=== PATIENT | female | born 1970 | race Caucasian/White ===

== ENCOUNTER 2020-06-05 08:48 | Day surgery (SDC) | payer BC ==
[~2020-06-05] VITALS: Ht 172.7 cm; Wt 77.8 kg
[~2020-06-05 08:48] MED LIST: LORA.5 PO; PRAZ1 PO; ZOLOFT25 MG PO
== END 2020-06-05 10:30 | disposition home or self-care (01) ==
LOC: ORSCSDS 08:48
PROVIDERS: Orthopaedic Surgery
PROC: 01N54ZZ Release Median Nerve, Percutaneous Endoscopic Approach (ICD-10-PCS; principal; 2020-06-05 10:00)
DX: G56.01 Carpal tunnel syndrome, right upper limb (principal); F41.8 Other specified anxiety disorders; F17.210 Nicotine dependence, cigarettes, uncomplicated; Z79.899 Other long term (current) drug therapy
CPT/HCPCS: J2250; J3010; J7120

== ENCOUNTER 2023-02-23 14:30 | Emergency (ER) | payer OTHER ==
[~2023-02-23] VITALS: Ht 172.7 cm; Wt 93.4 kg
[2023-02-23 14:53] VITALS: BP 141/96
[2023-02-23] MEDS ORDERED: ENOX40I SC (15:32)
[2023-02-23] MEDS ORDERED: ZOLOFT10013 PO (15:33)
== END 2023-02-23 17:12 | disposition home or self-care (01) ==
LOC: ER 14:30
DX: G89.18 Other acute postprocedural pain (principal); M79.651 Pain in right thigh; R10.31 Right lower quadrant pain; Z79.899 Other long term (current) drug therapy; F17.210 Nicotine dependence, cigarettes, uncomplicated
CPT/HCPCS: 93971; 99283-25

== ENCOUNTER 2023-05-16 23:28 | Emergency (ER) | payer OTHER ==
[~2023-05-16] VITALS: Ht 172.7 cm; Wt 92.1 kg
[~2023-05-16 23:28] MED LIST changes: +ENOX40I SC; +ZOLOFT10013 PO
[2023-05-16 23:58] VITALS: BP 110/72
[2023-05-17] MEDS ORDERED: METO5A PO (00:01)
[2023-05-17] MEDS ORDERED: OMEP20ER PO (00:01)
== END 2023-05-17 01:55 | disposition home or self-care (01) ==
LOC: ER 23:28
DX: S91.312A Laceration without foreign body, left foot, initial encounter (principal); F17.210 Nicotine dependence, cigarettes, uncomplicated; W26.0XXA Contact with knife, initial encounter; Z79.899 Other long term (current) drug therapy
CPT/HCPCS: 12002; 99283-25

== ENCOUNTER 2023-07-03 06:59 | Emergency (ER) | payer OTHER ==
[~2023-07-03] VITALS: Ht 172.7 cm; Wt 90.7 kg
[~2023-07-03 06:59] MED LIST changes: +METO5A PO; +OMEP20ER PO
[2023-07-03 07:59] LABS: BASOPHILS ABSOLUTE AUTO 0.02 K/mm3 (0.00-0.23); BASOPHILS PERCENT AUTO 0 % (0-2); EOSINOPHILS ABSOLUTE AUTO 0.07 K/mm3 (0.00-0.68); EOSINOPHILS PERCENT AUTO 1 % (0-6); Hematocrit 33.1 % (33.0-51.0); Hemoglobin 11.1 g/dL (11.5-16.0); IMMATURE GRAN ABSOLUTE AUTO 0.03 K/mm3 (0.00-0.10); IMMATURE GRAN PERCENT AUTO 0 % (0-1); LYMPHOCYTES ABSOLUTE AUTO 0.34 K/mm3 (0.84-5.20); LYMPHOCYTES PERCENT AUTO 3 % (21-46); MONOCYTES ABSOLUTE AUTO 0.31 K/mm3 (0.16-1.47); MONOCYTES PERCENT AUTO 3 % (4-13); Mean Corpuscular HGB 35.1 pg (26.0-34.0); Mean Corpuscular HGB Conc 33.5 g/dL (31.5-36.5); Mean Corpuscular Volume 105 fL (80-100); Mean Platelet Volume 8.8 fL (9.1-12.4); NEUTROPHILS ABSOLUTE AUTO 11.78 K/mm3 (1.96-9.15); NEUTROPHILS PERCENT AUTO 94 % (41-73); Platelet Count 341 K/mm3 (150-400); RDW Coefficient Variation 15.5 % (11.7-14.2); RDW Standard Deviation 60.3 fL (35.1-46.3); Red Blood Cell Count 3.16 M/mm3 (3.80-5.20); White Blood Cell Count 12.55 K/mm3 (4.00-11.30)
[2023-07-03 08:34] LABS: Albumin, Blood 3.4 g/dL (3.4-5.0); Albumin/Globulin Ratio 0.9 (0.8-1.8); Bilirubin, Total 0.4 mg/dL (0.1-1.0); Calcium, Blood 9.1 mg/dL (8.5-10.1); Creatinine, Blood 0.81 mg/dL (0.40-1.00); Globulin, Blood 3.8 g/dL (2.2-4.0); Magnesium, Blood 1.6 mg/dL (1.6-2.4); Potassium, Blood 3.9 mmol/L (3.5-5.5); Total Protein, Blood 7.2 g/dL (6.4-8.2)
[2023-07-03 08:52] LABS: Source, Urine Clean Catch
[2023-07-03 08:59] LABS: Appearance, Urine Clear (Clear); Bilirubin, Urine Neg (Neg); Blood, Urine 1+ (Neg); Color, Urine Yellow (P-Yellow); Glucose Qualitative, Urine Neg (Neg); Ketones, Urine Neg (Neg); Leukocyte Esterase, Urine Neg (Neg); Nitrite, Urine Neg (Neg); Protein, Urine Neg (Neg); Urobilinogen, Urine NORM (Normal)
[2023-07-03 09:29] LABS: Bacteria Rare /hpf; Squamous Epithelial Cells Few /hpf (Few); White Blood Cells, Urine Not Seen /hpf (0-5)
[2023-07-03] MEDS ORDERED: DOTTI1 EA18 (10:38)
[2023-07-03] MEDS ORDERED: ELIQUIS5 M2 PO (11:57)
[2023-07-03 12:15] VITALS: BP 113/78
== END 2023-07-03 12:12 | disposition home or self-care (01) ==
LOC: ER 06:59
PROVIDERS: Student in an Organized Health Care Education/Training Program
DX: G57.11 Meralgia paresthetica, right lower limb (principal); R19.03 Right lower quadrant abdominal swelling, mass and lump; I82.411 Acute embolism and thrombosis of right femoral vein; C53.9 Malignant neoplasm of cervix uteri, unspecified; D72.829 Elevated white blood cell count, unspecified; F17.210 Nicotine dependence, cigarettes, uncomplicated; Z91.018 Allergy to other foods; Z79.01 Long term (current) use of anticoagulants; Z79.899 Other long term (current) drug therapy; Z90.710 Acquired absence of both cervix and uterus
CPT/HCPCS: 74177; 80053; 81001; 83690; 83735; 85025; 93971; 96374; 99284-25; A9270; J1885; Q9967